=== PATIENT | female | born 1960 | race Caucasian/White ===

== ENCOUNTER 2017-08-01 09:37 | Outpatient (CLI) | payer MEDICARE | END 2017-08-01 09:38 | disposition home or self-care (01) | LOC: LABBT 09:37 | PROVIDERS: ATTEND Neurological Surgery | DX: Z01.812 Encounter for preprocedural laboratory examination (principal); M48.061 Spinal stenosis, lumbar region without neurogenic claudication; M54.16 Radiculopathy, lumbar region ==

== ENCOUNTER 2021-07-08 21:43 | Inpatient (IN) | payer MEDICARE ==
[2021-07-08 23:10] VITALS: BMI 27.8
[2021-07-09] MEDS ORDERED: Ondansetron PF 4 MG/2 ML Vial IVP PRN (01:16)
[2021-07-09] MEDS ORDERED: Ondansetron ODT 4 MG TAB PO PRN (01:16)
[2021-07-09] MEDS ORDERED: Acetaminophen 650 MG Suppository PR PRN (01:16)
[2021-07-09] MEDS ORDERED: Sodium Chloride 0.9% 500 ML IV SCH (01:30)
[2021-07-09] MEDS: Acetaminophen 325 MG TAB PO PRN ×3 (01:47→11:10)
[2021-07-09] MEDS: Sodium Chloride 0.9% 1,000 ML IV SCH ×3 (01:47→23:02)
[2021-07-09 05:41] LABS: #Eosinphils 0.1 thou/uL (0.0-0.7); #Lymphocytes 1.6 thou/uL (1.20-3.40); #Monocytes 1.2 thou/uL (0.11-0.59); #Neutrophils 13.5 thou/uL (1.40-6.50); %Eosinophils 0.4 % (0.0-10.0); %Lymphocytes 9.6 % (21.0-51.0); %Monocytes 7.2 % (0.0-10.0); %Neutrophils 82.8 % (42.0-75.0); Hemoglobin 10.3 g/dL (12.0-16.0); Mean Corpuscular HGB CONC 32.6 g/dL (32.0-36.0); Mean Corpuscular Hemoglobin 29.7 pg (27.0-31.0); Mean Corpuscular Volume 90.9 fL (78.0-98.0); Mean Platelet Volume 9.5 fL (7.4-10.4); Platelet Count 222 thou/uL (130-400); RBC Distribution Width 13.8 % (11.5-14.5); Red Blood Cell (RBC) Count 3.47 mill/uL (4.20-5.40); White Blood Cell (WBC) Count 16.3 thou/uL (4.8-10.8)
[2021-07-09 06:07] LABS: Anion Gap 13 mmol/L (10-20); BUN (Urea Nitrogen) 30 mg/dL (9.8-20.1); Calc. Creatinine Clearance 80 mL/min (70-130); Calcium 8.4 mg/dL (7.8-10.44); Carbon Dioxide 19 mmol/L (22-29); Chloride 108 mmol/L (98-107); Glucose 103 mg/dL (70-105); Potassium 3.7 mmol/L (3.5-5.1); Sodium 136 mmol/L (136-145)
[2021-07-09] MEDS ORDERED: VANCOMYCIN 1.25 GM/250 ML BAG 1.25 GM in Premix Bag 1 BAG IVPB SCH (08:00)
[2021-07-09] MEDS: Cefepime 2 GM in Sodium Chloride 0.9% 100 ML IVPB SCH ×2 (09:07→21:41)
[2021-07-09 11:58] LABS: SARS-CoV-2 PCR by NAA Not Detected (NotDetected)
[2021-07-09] MEDS: HYDROcodone/Acetaminophen 5/325 mg Tablet PO PRN ×3 (13:02→21:41)
[2021-07-09] MEDS ORDERED: tiZANidine HCl 4 MG TAB PO PRN (15:55)
[2021-07-09] MEDS ORDERED: Morphine 4 MG/ML VIAL SLOW IVP PRN (16:06)
[2021-07-09] MEDS ORDERED: hydrALAZINE 20 MG/ML VIAL SLOW IVP PRN (16:32)
[2021-07-09 16:48] LABS: Bacteria/HPF None Seen HPF (None Seen); Bilirubin Negative (Negative); Blood, Urine Negative (Negative); Clarity Clear (Clear); Glucose, Urine (Dipstick) 50 mg/dL (Negative); Ketone, Urine Negative (Negative); Leukocyte 75 Leu/uL (Negative); Nitrite Negative (Negative); Protein, Urine (Dipstick) 20 mg/dL (Neg-Trace); RBC/HPF 0-3 HPF (0-3); Specific Gravity, Urine 1.014 (1.002-1.036); Squamous Epithelial None Seen HPF (0-3); Urobilinogen Normal mg/dL (Less than 2)
[2021-07-09 16:49] LABS: Urine Culture Reflex Yes Yes
[2021-07-09] MEDS: Ketorolac Tromethamine 30 MG/ML VIAL IVP SCH (17:51)
[2021-07-09] MEDS: Vancomycin HCl 1.25 GM in Sodium Chloride 0.9% 250 ML 250 ML IVPB SCH (22:30)
[2021-07-10] MEDS: Ketorolac Tromethamine 30 MG/ML VIAL IVP SCH ×5 (00:25→23:20)
[2021-07-10] MEDS: HYDROcodone/Acetaminophen 5/325 mg Tablet PO PRN ×4 (04:09→20:54)
[2021-07-10] MEDS ORDERED: Iothalamate Meglumine 60% 50 ML VIAL FS ONE (08:24)
[2021-07-10] MEDS ORDERED: Fentanyl 100 MCG/2 ML VIAL ONE (08:34)
[2021-07-10] MEDS ORDERED: Dexamethasone 20 MG/5 ML VIAL ONE (08:47)
[2021-07-10] MEDS ORDERED: PROPOFOL 200 MG/20 ML VIAL ONE (08:47)
[2021-07-10] MEDS ORDERED: Ondansetron PF 4 MG/2 ML Vial ONE (08:47)
[2021-07-10] MEDS ORDERED: Lidocaine 1% PF 5 ML VIAL ONE (08:47)
[2021-07-10] MEDS: Cefepime 2 GM in Sodium Chloride 0.9% 100 ML IVPB SCH ×2 (10:25→20:54)
[2021-07-10] MEDS ORDERED: Tamsulosin HCl 0.4 MG CAP PO SCH (10:30)
[2021-07-10] MEDS: Sodium Chloride 0.9% 1,000 ML IV SCH ×2 (10:41→18:14)
[2021-07-10 11:59] LABS: Hemoglobin 11.3 g/dL (12.0-16.0); Mean Corpuscular HGB CONC 33.2 g/dL (32.0-36.0); Mean Corpuscular Hemoglobin 30.1 pg (27.0-31.0); Mean Corpuscular Volume 90.7 fL (78.0-98.0); Mean Platelet Volume 8.8 fL (7.4-10.4); Platelet Count 348 thou/uL (130-400); RBC Distribution Width 13.4 % (11.5-14.5); Red Blood Cell (RBC) Count 3.74 mill/uL (4.20-5.40); White Blood Cell (WBC) Count 28.2 thou/uL (4.8-10.8)
[2021-07-10 12:19] LABS: Band 6 % (5-11); Lymphocytes 2 % (21-51); MDiff Complete? YES; Monocytes 6 % (0-10); Neutrophil 85 % (42-75); Platelet Morphology Comment Appears Adequate; Polychromasia SLIGHT = 2-3 cells (100X) (0-2/hpf); Reactive Lymphocytes 1 % (0-10)
[2021-07-10 15:10] LABS: Anion Gap 14 mmol/L (10-20); BUN (Urea Nitrogen) 24 mg/dL (9.8-20.1); Calc. Creatinine Clearance 68 mL/min (70-130); Calcium 8.2 mg/dL (7.8-10.44); Carbon Dioxide 16 mmol/L (22-29); Chloride 109 mmol/L (98-107); Glucose 263 mg/dL (70-105); Potassium 4.3 mmol/L (3.5-5.1); Sodium 135 mmol/L (136-145)
[2021-07-10] MEDS: Oxybutynin 5 MG TAB PO SCH ×2 (15:37→20:54)
[2021-07-10 21:18] LABS: Vancomycin, Trough 11.7 ug/mL
[2021-07-10] MEDS: Vancomycin HCl 1.25 GM in Sodium Chloride 0.9% 250 ML 250 ML IVPB SCH (23:21)
[2021-07-11] MEDS: HYDROcodone/Acetaminophen 5/325 mg Tablet PO PRN ×3 (03:08→19:46)
[2021-07-11] MEDS: Sodium Chloride 0.9% 1,000 ML IV SCH ×2 (03:09→16:52)
[2021-07-11] MEDS: Ketorolac Tromethamine 30 MG/ML VIAL IVP SCH ×4 (05:44→23:36)
[2021-07-11] MEDS: Oxybutynin 5 MG TAB PO SCH ×3 (05:44→22:23)
[2021-07-11 06:04] LABS: #Eosinphils 0.1 thou/uL (0.0-0.7); #Lymphocytes 1.6 thou/uL (1.20-3.40); #Monocytes 1.2 thou/uL (0.11-0.59); #Neutrophils 15.6 thou/uL (1.40-6.50); %Basophils 0.1 % (0.0-1.0); %Eosinophils 0.5 % (0.0-10.0); %Lymphocytes 8.7 % (21.0-51.0); %Monocytes 6.6 % (0.0-10.0); %Neutrophils 84.1 % (42.0-75.0); Hemoglobin 10.5 g/dL (12.0-16.0); Mean Corpuscular HGB CONC 32.7 g/dL (32.0-36.0); Mean Corpuscular Hemoglobin 30.3 pg (27.0-31.0); Mean Corpuscular Volume 92.5 fL (78.0-98.0); Platelet Count 322 thou/uL (130-400); RBC Distribution Width 13.4 % (11.5-14.5); Red Blood Cell (RBC) Count 3.45 mill/uL (4.20-5.40); White Blood Cell (WBC) Count 18.5 thou/uL (4.8-10.8)
[2021-07-11 06:32] LABS: Anion Gap 12 mmol/L (10-20); BUN (Urea Nitrogen) 39 mg/dL (9.8-20.1); Calc. Creatinine Clearance 78 mL/min (70-130); Calcium 8.8 mg/dL (7.8-10.44); Carbon Dioxide 20 mmol/L (22-29); Chloride 107 mmol/L (98-107); Glucose 111 mg/dL (70-105); Potassium 4.5 mmol/L (3.5-5.1); Sodium 134 mmol/L (136-145)
[2021-07-11] MEDS: Tamsulosin HCl 0.4 MG CAP PO SCH (08:25)
[2021-07-11] MEDS ORDERED: FLU VACC QS2021-22(6MOS UP)/PF 60 MCG/0.5 ML SYRINGE IM ONE (09:00)
[2021-07-11] MEDS: Cefepime 2 GM in Sodium Chloride 0.9% 100 ML IVPB SCH ×2 (11:21→19:51)
[2021-07-11] MEDS ORDERED: Mag-Al 1200 mg/1200 mg/30 ML UDCUP PO PRN (11:22)
[2021-07-11] MEDS ORDERED: Non-Formulary Item 1 EACH (Gabapentin [Gabapentin] 800 MG Tablet) PO SCH (15:00)
[2021-07-11] MEDS ORDERED: busPIRone HCl 5 MG TAB PO SCH (21:00)
[2021-07-11] MEDS ORDERED: Mometasone 100 MCG/Formoterol 5 MCG 120 PUFF INHALER INH PRN (21:00)
[2021-07-11] MEDS ORDERED: Melatonin 3 MG TAB PO PRN (21:00)
[2021-07-11] MEDS: Vancomycin HCl 1.25 GM in Sodium Chloride 0.9% 250 ML 250 ML IVPB SCH (22:23)
[2021-07-12] MEDS: HYDROcodone/Acetaminophen 5/325 mg Tablet PO PRN (03:02)
[2021-07-12] MEDS: Sodium Chloride 0.9% 1,000 ML IV SCH ×2 (03:03→11:39)
[2021-07-12] MEDS: Oxybutynin 5 MG TAB PO SCH (05:49)
[2021-07-12] MEDS: Ketorolac Tromethamine 30 MG/ML VIAL IVP SCH ×2 (05:50→11:35)
[2021-07-12 06:40] LABS: #Basophils 0.1 thou/uL (0.0-0.2); #Eosinphils 0.2 thou/uL (0.0-0.7); #Lymphocytes 1.6 thou/uL (1.20-3.40); #Monocytes 1.1 thou/uL (0.11-0.59); %Basophils 0.4 % (0.0-1.0); %Eosinophils 1.5 % (0.0-10.0); %Lymphocytes 11.3 % (21.0-51.0); %Monocytes 8.1 % (0.0-10.0); %Neutrophils 78.7 % (42.0-75.0); Mean Corpuscular HGB CONC 32.9 g/dL (32.0-36.0); Mean Corpuscular Hemoglobin 30.3 pg (27.0-31.0); Mean Corpuscular Volume 92.1 fL (78.0-98.0); Mean Platelet Volume 8.5 fL (7.4-10.4); Platelet Count 379 thou/uL (130-400); RBC Distribution Width 13.4 % (11.5-14.5); Red Blood Cell (RBC) Count 3.31 mill/uL (4.20-5.40)
[2021-07-12 07:03] LABS: Anion Gap 11 mmol/L (10-20); BUN (Urea Nitrogen) 30 mg/dL (9.8-20.1); Calc. Creatinine Clearance 84 mL/min (70-130); Calcium 8.6 mg/dL (7.8-10.44); Carbon Dioxide 21 mmol/L (22-29); Chloride 110 mmol/L (98-107); Glucose 120 mg/dL (70-105); Potassium 4.5 mmol/L (3.5-5.1); Sodium 137 mmol/L (136-145)
[2021-07-12] MEDS: Cefepime 2 GM in Sodium Chloride 0.9% 100 ML IVPB SCH (08:26)
[2021-07-12] MEDS: Tamsulosin HCl 0.4 MG CAP PO SCH (08:26)
[2021-07-12] MEDS ORDERED: Bupropion 150 MG XL TAB PO SCH (09:00)
[2021-07-12] MEDS ORDERED: Venlafaxine HCl XR 75 MG CAP PO SCH (09:00)
[2021-07-12 11:54] VITALS: BP 132/79; TEMP 97.4
[2021-07-15 18:14] LABS: CA Oxalate Dihydrate 40 % (.); CA Oxalate Monohydrate 55 % (.); Color Tan (.); Stone Weight 114 mg (.)
== END 2021-07-12 14:42 | disposition home health service (06) | DRG 853 ==
LOC: SJJU 22:58 → OBSVTOIN 23:42
PROVIDERS: ADMIT Student in an Organized Health Care Education/Training Program; ATTEND Internal Medicine
PROC: 0TC78ZZ Extirpation of Matter from Left Ureter, Via Natural or Artificial Opening Endoscopic (ICD-10-PCS; principal; 2021-07-10)
PROC: 0T778DZ Dilation of Left Ureter with Intraluminal Device, Via Natural or Artificial Opening Endoscopic (ICD-10-PCS; 2021-07-10)
DX: A41.9 Sepsis, unspecified organism (principal); G95.19 Other vascular myelopathies; N13.6 Pyonephrosis; Z20.822 Contact with and (suspected) exposure to COVID-19; G51.0 Bell's palsy; I10 Essential (primary) hypertension; G89.29 Other chronic pain; F17.210 Nicotine dependence, cigarettes, uncomplicated; S39.012A Strain of muscle, fascia and tendon of lower back, initial encounter; X58.XXXA Exposure to other specified factors, initial encounter; M48.061 Spinal stenosis, lumbar region without neurogenic claudication; Z86.73 Personal history of transient ischemic attack (TIA), and cerebral infarction without residual deficits; Z88.0 Allergy status to penicillin; Z88.8 Allergy status to other drugs, medicaments and biological substances; Z91.048 Other nonmedicinal substance allergy status; Z79.51 Long term (current) use of inhaled steroids; Z79.899 Other long term (current) drug therapy
CPT/HCPCS: 36415; 72148; 74176; 74420; 80048; 80053; 80202; 81001; 81003; 81015; 82365; 83605; 85025; 85652; 86140; 87040; 87077; 87086; 87149; 87186; 88300; 94760; 96365; 96367; 96375; 96376; C2617; J0692; J0696; J1100; J1885; J2270; J2405; J2704; J3010; J3370; J3490; J7030; J7050; Q9961-U8; U0003; U0005

== ENCOUNTER 2021-07-13 11:16 | Observation (INO) | payer MEDICARE ==
[2021-07-13] MEDS ORDERED: Morphine 4 MG/ML VIAL ONE ×2 (12:13→15:43)
[2021-07-13] MEDS ORDERED: Ondansetron PF 4 MG/2 ML Vial ONE (12:13)
[2021-07-13 13:10] LABS: #Basophils 0.1 thou/uL (0.0-0.2); #Eosinphils 0.1 thou/uL (0.0-0.7); #Lymphocytes 1.6 thou/uL (1.20-3.40); #Monocytes 1.2 thou/uL (0.11-0.59); %Basophils 0.4 % (0.0-1.0); %Eosinophils 0.6 % (0.0-10.0); %Lymphocytes 11.5 % (21.0-51.0); %Monocytes 8.3 % (0.0-10.0); %Neutrophils 79.2 % (42.0-75.0); Hemoglobin 9.2 g/dL (12.0-16.0); Mean Corpuscular HGB CONC 33.6 g/dL (32.0-36.0); Mean Corpuscular Hemoglobin 30.4 pg (27.0-31.0); Mean Corpuscular Volume 90.4 fL (78.0-98.0); Platelet Count 468 thou/uL (130-400); RBC Distribution Width 13.2 % (11.5-14.5); Red Blood Cell (RBC) Count 3.04 mill/uL (4.20-5.40); White Blood Cell (WBC) Count 13.9 thou/uL (4.8-10.8)
[2021-07-13 13:33] LABS: ALT (SGPT) 20 U/L (8-55); AST (SGOT) 19 U/L (5-34); Albumin 2.7 g/dL (3.5-5.0); Alkaline Phosphatase 67 U/L (40-110); Anion Gap 11 mmol/L (10-20); BUN (Urea Nitrogen) 18 mg/dL (9.8-20.1); Bilirubin, Total 0.7 mg/dL (0.2-1.2); Calc. Creatinine Clearance 0 mL/min (70-130); Calcium 8.9 mg/dL (7.8-10.44); Carbon Dioxide 22 mmol/L (22-29); Chloride 105 mmol/L (98-107); Globulin 3.5 g/dL (2.4-3.5); Glucose 112 mg/dL (70-105); Potassium 4.1 mmol/L (3.5-5.1); Protein, Total 6.2 g/dL (6.0-8.3); Sodium 134 mmol/L (136-145)
[2021-07-13 16:04] LABS: Bilirubin Negative (Negative); Blood, Urine 3+ (Negative); Clarity Clear (Clear); Glucose, Urine (Dipstick) 70 mg/dL (Negative); Ketone, Urine Negative (Negative); Leukocyte 25 Leu/uL (Negative); Nitrite Negative (Negative); Protein, Urine (Dipstick) 30 mg/dL (Neg-Trace); Specific Gravity, Urine 1.012 (1.002-1.036); Urobilinogen Normal mg/dL (Less than 2)
[2021-07-13 16:05] LABS: Bacteria/HPF 1+ HPF (None Seen); Squamous Epithelial 0-3 HPF (0-3)
[2021-07-13 19:00] LABS: Magnesium 1.8 mg/dL (1.6-2.6); Phosphorus 2.5 mg/dL (2.3-4.7)
[2021-07-13] MEDS ORDERED: HYDROcodone/Acetaminophen 10/325 mg Tablet PO PRN (19:04)
[2021-07-13] MEDS ORDERED: Acetaminophen 325 MG TAB PO PRN (19:04)
[2021-07-13] MEDS ORDERED: Bisacodyl 5 MG TAB PO PRN (19:04)
[2021-07-13] MEDS ORDERED: Ondansetron PF 4 MG/2 ML Vial IVP PRN (19:04)
[2021-07-13] MEDS ORDERED: Senokot S 8.6-50 MG TAB PO PRN (19:04)
[2021-07-13] MEDS ORDERED: Mometasone 100 MCG/Formoterol 5 MCG 120 PUFF INHALER INH PRN (19:23)
[2021-07-13] MEDS ORDERED: Morphine 4 MG/ML VIAL SLOW IVP PRN (20:09)
[2021-07-13] MEDS ORDERED: Albuterol Sulfate 2.5 mg/3 ml Neb NEB PRN (20:10)
[2021-07-13] MEDS: Morphine 4 MG/ML VIAL SLOW IVP PRN (20:46)
[2021-07-13] MEDS: Sodium Chloride 0.9% 1,000 ML IV SCH (20:47)
[2021-07-13 21:05] VITALS: BMI 29.6
[2021-07-13] MEDS: tiZANidine HCl 4 MG TAB PO SCH (22:21)
[2021-07-13] MEDS: risperiDONE 3 MG TAB PO SCH (22:21)
[2021-07-13] MEDS: Ciprofloxacin 500 MG TAB PO SCH (22:21)
[2021-07-13] MEDS: Melatonin 3 MG TAB PO SCH (22:21)
[2021-07-13] MEDS: Simvastatin 10 MG TAB PO SCH (22:22)
[2021-07-13] MEDS: Famotidine/PF 20 mg/2ml Vial SLOW IVP SCH (22:23)
[2021-07-14] MEDS: Morphine 4 MG/ML VIAL SLOW IVP PRN ×3 (00:28→10:25)
[2021-07-14] MEDS ORDERED: hydrALAZINE 20 MG/ML VIAL SLOW IVP PRN (01:03)
[2021-07-14] MEDS: tiZANidine HCl 4 MG TAB PO SCH ×3 (05:23→21:13)
[2021-07-14 06:00] LABS: #Eosinphils 0.2 thou/uL (0.0-0.7); #Lymphocytes 1.2 thou/uL (1.20-3.40); #Monocytes 0.9 thou/uL (0.11-0.59); #Neutrophils 7.2 thou/uL (1.40-6.50); %Basophils 0.5 % (0.0-1.0); %Eosinophils 1.8 % (0.0-10.0); %Lymphocytes 12.7 % (21.0-51.0); %Monocytes 9.3 % (0.0-10.0); %Neutrophils 75.8 % (42.0-75.0); Hemoglobin 8.5 g/dL (12.0-16.0); Mean Corpuscular HGB CONC 31.3 g/dL (32.0-36.0); Mean Corpuscular Hemoglobin 28.9 pg (27.0-31.0); Mean Corpuscular Volume 92.3 fL (78.0-98.0); Mean Platelet Volume 7.6 fL (7.4-10.4); Platelet Count 443 thou/uL (130-400); RBC Distribution Width 13.2 % (11.5-14.5); Red Blood Cell (RBC) Count 2.96 mill/uL (4.20-5.40); White Blood Cell (WBC) Count 9.5 thou/uL (4.8-10.8)
[2021-07-14 06:25] LABS: Anion Gap 11 mmol/L (10-20); BUN (Urea Nitrogen) 20 mg/dL (9.8-20.1); Calc. Creatinine Clearance 86 mL/min (70-130); Carbon Dioxide 22 mmol/L (22-29); Chloride 104 mmol/L (98-107); Glucose 119 mg/dL (70-105); Potassium 4.8 mmol/L (3.5-5.1); Sodium 132 mmol/L (136-145)
[2021-07-14] MEDS: Aspirin 325 mg Enteric Coated Tablet PO SCH (07:58)
[2021-07-14] MEDS: Venlafaxine HCl XR 75 MG CAP PO SCH (07:58)
[2021-07-14] MEDS: Ciprofloxacin 500 MG TAB PO SCH ×2 (07:59→21:02)
[2021-07-14] MEDS: Famotidine/PF 20 mg/2ml Vial SLOW IVP SCH ×2 (07:59→21:02)
[2021-07-14] MEDS: Bupropion 150 MG XL TAB PO SCH (10:26)
[2021-07-14] MEDS: Sodium Chloride 0.9% 1,000 ML IV SCH (14:18)
[2021-07-14] MEDS: Simvastatin 10 MG TAB PO SCH (21:02)
[2021-07-14] MEDS: Melatonin 3 MG TAB PO SCH (21:03)
[2021-07-14] MEDS: risperiDONE 3 MG TAB PO SCH (21:03)
[2021-07-15] MEDS: Morphine 4 MG/ML VIAL SLOW IVP PRN ×2 (03:12→08:55)
[2021-07-15] MEDS: tiZANidine HCl 4 MG TAB PO SCH (06:18)
[2021-07-15] MEDS: Aspirin 325 mg Enteric Coated Tablet PO SCH (08:47)
[2021-07-15] MEDS: Ciprofloxacin 500 MG TAB PO SCH (08:47)
[2021-07-15] MEDS: Venlafaxine HCl XR 75 MG CAP PO SCH (08:47)
[2021-07-15] MEDS: Sodium Chloride 0.9% 1,000 ML IV SCH ×2 (08:48→12:39)
[2021-07-15] MEDS: Famotidine/PF 20 mg/2ml Vial SLOW IVP SCH (08:48)
[2021-07-15 09:04] VITALS: BP 95/63; TEMP 98.4
[2021-07-15] MEDS: Bupropion 150 MG XL TAB PO SCH (12:39)
== END 2021-07-15 13:48 | disposition home or self-care (01) ==
LOC: ERS 11:16 → INTOOBSV 18:03 → T4-A 18:03
PROVIDERS: ADMIT Internal Medicine; ATTEND Internal Medicine
DX: S39.012A Strain of muscle, fascia and tendon of lower back, initial encounter (principal); G89.29 Other chronic pain; I10 Essential (primary) hypertension; E87.1 Hypo-osmolality and hyponatremia; G51.0 Bell's palsy; E88.09 Other disorders of plasma-protein metabolism, not elsewhere classified; N30.00 Acute cystitis without hematuria; Z79.82 Long term (current) use of aspirin; Z79.890 Hormone replacement therapy; Z79.899 Other long term (current) drug therapy; Z86.73 Personal history of transient ischemic attack (TIA), and cerebral infarction without residual deficits; Z87.440 Personal history of urinary (tract) infections; Z88.0 Allergy status to penicillin; Z88.8 Allergy status to other drugs, medicaments and biological substances; Z90.49 Acquired absence of other specified parts of digestive tract; Z90.710 Acquired absence of both cervix and uterus; Z98.51 Tubal ligation status; Z98.890 Other specified postprocedural states; Z87.891 Personal history of nicotine dependence; Z91.09 Other allergy status, other than to drugs and biological substances; X58.XXXA Exposure to other specified factors, initial encounter
CPT/HCPCS: 80048; 80053; 82607; 82746; 83605; 83735; 84100; 85025 ×2; 87040; 87086; 96374; 96375 ×2; 96376 ×4; 97116; 97139; 97530; 97535; 99284; G0378 ×4; 36415; 81003; 81015; J2270; J2405; J7050; S0028

== ENCOUNTER 2021-07-21 16:08 | Emergency (ER) | payer MEDICARE ==
[2021-07-21] MEDS ORDERED: Fentanyl 100 MCG/2 ML VIAL ONE (17:01)
[2021-07-21] MEDS ORDERED: Ondansetron PF 4 MG/2 ML Vial ONE (17:01)
[2021-07-21 18:14] LABS: #Eosinphils 0.1 thou/uL (0.0-0.7); #Lymphocytes 2.1 thou/uL (1.20-3.40); #Monocytes 1.3 thou/uL (0.11-0.59); #Neutrophils 6.1 thou/uL (1.40-6.50); %Basophils 0.5 % (0.0-1.0); %Lymphocytes 21.5 % (21.0-51.0); %Monocytes 13.4 % (0.0-10.0); %Neutrophils 63.6 % (42.0-75.0); Hemoglobin 8.9 g/dL (12.0-16.0); Mean Corpuscular HGB CONC 32.9 g/dL (32.0-36.0); Mean Corpuscular Hemoglobin 30.3 pg (27.0-31.0); Mean Corpuscular Volume 92.2 fL (78.0-98.0); Mean Platelet Volume 6.2 fL (7.4-10.4); Platelet Count 516 thou/uL (130-400); RBC Distribution Width 12.5 % (11.5-14.5); Red Blood Cell (RBC) Count 2.95 mill/uL (4.20-5.40); White Blood Cell (WBC) Count 9.6 thou/uL (4.8-10.8)
[2021-07-21 18:42] LABS: ALT (SGPT) 19 U/L (8-55); AST (SGOT) 17 U/L (5-34); Albumin 2.8 g/dL (3.5-5.0); Alkaline Phosphatase 72 U/L (40-110); Anion Gap 12 mmol/L (10-20); BUN (Urea Nitrogen) 19 mg/dL (9.8-20.1); Bilirubin, Total 0.3 mg/dL (0.2-1.2); CK (CPK) 23 U/L (29-168); Calc. Creatinine Clearance 0 mL/min (70-130); Calcium 9.5 mg/dL (7.8-10.44); Carbon Dioxide 22 mmol/L (22-29); Chloride 105 mmol/L (98-107); Globulin 4.4 g/dL (2.4-3.5); Glucose 97 mg/dL (70-105); Lipase 152 U/L (8-78); Potassium 4.1 mmol/L (3.5-5.1); Protein, Total 7.2 g/dL (6.0-8.3); Sodium 135 mmol/L (136-145)
[2021-07-21] MEDS ORDERED: Morphine 4 MG/ML VIAL ONE (20:06)
[2021-07-21 20:31] LABS: Bilirubin Negative (Negative); Blood, Urine Negative (Negative); Clarity Clear (Clear); Glucose, Urine (Dipstick) Normal (Negative); Ketone, Urine Negative (Negative); Leukocyte Negative Leu/uL (Negative); Nitrite Negative (Negative); Protein, Urine (Dipstick) Negative (Neg-Trace); Specific Gravity, Urine 1.011 (1.002-1.036); Urobilinogen Normal mg/dL (Less than 2)
== END 2021-07-22 00:44 | disposition home or self-care (01) ==
LOC: ERS 16:08
DX: R10.9 Unspecified abdominal pain (principal); I10 Essential (primary) hypertension; F17.210 Nicotine dependence, cigarettes, uncomplicated; Z86.73 Personal history of transient ischemic attack (TIA), and cerebral infarction without residual deficits; Z86.69 Personal history of other diseases of the nervous system and sense organs
CPT/HCPCS: 36415; 51701; 74176; 80053; 81003; 82550; 83690; 85025; 96374; 96375; J2270; J2405; J3010

== ENCOUNTER 2021-07-25 17:11 | Emergency (ER) | payer MEDICARE ==
[2021-07-25] MEDS ORDERED: Acetaminophen 500 MG TAB ONE (18:58)
[2021-07-25 19:27] LABS: #Eosinphils 0.1 thou/uL (0.0-0.7); #Lymphocytes 1.3 thou/uL (1.20-3.40); %Basophils 0.1 % (0.0-1.0); %Eosinophils 0.5 % (0.0-10.0); %Lymphocytes 11.6 % (21.0-51.0); %Monocytes 9.1 % (0.0-10.0); %Neutrophils 78.7 % (42.0-75.0); Hemoglobin 9.3 g/dL (12.0-16.0); Mean Corpuscular HGB CONC 33.7 g/dL (32.0-36.0); Mean Corpuscular Hemoglobin 30.3 pg (27.0-31.0); Mean Corpuscular Volume 89.8 fL (78.0-98.0); Mean Platelet Volume 6.1 fL (7.4-10.4); Platelet Count 561 thou/uL (130-400); RBC Distribution Width 12.5 % (11.5-14.5); Red Blood Cell (RBC) Count 3.06 mill/uL (4.20-5.40); White Blood Cell (WBC) Count 11.4 thou/uL (4.8-10.8)
[2021-07-25 19:48] LABS: ALT (SGPT) 24 U/L (8-55); AST (SGOT) 25 U/L (5-34); Albumin 3.1 g/dL (3.5-5.0); Alkaline Phosphatase 78 U/L (40-110); Anion Gap 12 mmol/L (10-20); BUN (Urea Nitrogen) 16 mg/dL (9.8-20.1); Bilirubin, Total 0.4 mg/dL (0.2-1.2); Calc. Creatinine Clearance 0 mL/min (70-130); Calcium 10.6 mg/dL (7.8-10.44); Carbon Dioxide 24 mmol/L (22-29); Chloride 100 mmol/L (98-107); Globulin 4.9 g/dL (2.4-3.5); Glucose 105 mg/dL (70-105); Potassium 4.2 mmol/L (3.5-5.1); Sodium 132 mmol/L (136-145)
[2021-07-25 21:01] LABS: Bilirubin Negative (Negative); Blood, Urine Negative (Negative); Glucose, Urine (Dipstick) Normal (Negative); Ketone, Urine Negative (Negative); Leukocyte Negative Leu/uL (Negative); Nitrite Negative (Negative); Protein, Urine (Dipstick) 10 mg/dL (Neg-Trace); Specific Gravity, Urine 1.011 (1.002-1.036); Urobilinogen Normal mg/dL (Less than 2)
[2021-07-25 21:04] LABS: Clarity Hazy (Clear)
== END 2021-07-26 02:00 | disposition home or self-care (01) ==
LOC: ERS 17:11
DX: M54.50 Low back pain, unspecified (principal); I10 Essential (primary) hypertension; F17.200 Nicotine dependence, unspecified, uncomplicated; Z86.73 Personal history of transient ischemic attack (TIA), and cerebral infarction without residual deficits
CPT/HCPCS: 36415; 51701; 80053; 81003; 85025; 87086

== ENCOUNTER 2021-07-27 13:56 | Observation (INO) | payer MEDICARE ==
[2021-07-27 15:15] LABS: #Eosinphils 0.1 thou/uL (0.0-0.7); #Lymphocytes 1.4 thou/uL (1.20-3.40); #Neutrophils 9.1 thou/uL (1.40-6.50); %Basophils 0.3 % (0.0-1.0); %Eosinophils 0.7 % (0.0-10.0); %Lymphocytes 11.9 % (21.0-51.0); %Monocytes 8.5 % (0.0-10.0); %Neutrophils 78.6 % (42.0-75.0); Hemoglobin 9.5 g/dL (12.0-16.0); Mean Corpuscular HGB CONC 33.6 g/dL (32.0-36.0); Mean Corpuscular Hemoglobin 30.2 pg (27.0-31.0); Mean Corpuscular Volume 89.9 fL (78.0-98.0); Mean Platelet Volume 5.9 fL (7.4-10.4); Platelet Count 608 thou/uL (130-400); RBC Distribution Width 12.4 % (11.5-14.5); Red Blood Cell (RBC) Count 3.14 mill/uL (4.20-5.40); White Blood Cell (WBC) Count 11.6 thou/uL (4.8-10.8)
[2021-07-27 15:35] LABS: ALT (SGPT) 22 U/L (8-55); AST (SGOT) 21 U/L (5-34); Albumin 3.1 g/dL (3.5-5.0); Alkaline Phosphatase 75 U/L (40-110); Anion Gap 13 mmol/L (10-20); BUN (Urea Nitrogen) 18 mg/dL (9.8-20.1); Bilirubin, Total 0.3 mg/dL (0.2-1.2); Calc. Creatinine Clearance 0 mL/min (70-130); Calcium 10.2 mg/dL (7.8-10.44); Carbon Dioxide 25 mmol/L (22-29); Chloride 103 mmol/L (98-107); Globulin 4.9 g/dL (2.4-3.5); Glucose 89 mg/dL (70-105); Sodium 137 mmol/L (136-145)
[2021-07-27 16:26] LABS: Bilirubin Negative (Negative); Blood, Urine Negative (Negative); Clarity Turbid (Clear); Glucose, Urine (Dipstick) Normal (Negative); Ketone, Urine Negative (Negative); Leukocyte Negative Leu/uL (Negative); Nitrite Negative (Negative); Protein, Urine (Dipstick) 10 mg/dL (Neg-Trace); Specific Gravity, Urine 1.013 (1.002-1.036); Urobilinogen Normal mg/dL (Less than 2)
[2021-07-27] MEDS ORDERED: Cyclobenzaprine 10 MG TAB ONE (16:44)
[2021-07-27] MEDS ORDERED: Acetaminophen 500 MG TAB ONE (17:21)
[2021-07-27] MEDS ORDERED: Vancomycin 1 GM/200 ML BAG ONE (18:33)
[2021-07-27] MEDS ORDERED: Mometasone 100 MCG/Formoterol 5 MCG 120 PUFF INHALER INH PRN (19:37)
[2021-07-27] MEDS ORDERED: Ondansetron ODT 4 MG TAB PO PRN (19:38)
[2021-07-27] MEDS ORDERED: Sodium Chloride 0.9% 1,000 ML IV SCH (19:45)
[2021-07-27] MEDS ORDERED: Electrolyte Replacement Protocol 1 EACH FS SCH (20:00)
[2021-07-27] MEDS ORDERED: Albuterol Sulfate 2.5 mg/3 ml Neb NEB PRN (20:14)
[2021-07-27 20:33] VITALS: BMI 29.2
[2021-07-27] MEDS: Enoxaparin Sodium 40 MG/0.4 ML SYRINGE SC SCH ×2 (21:30→21:34)
[2021-07-27] MEDS: Melatonin 3 MG TAB PO SCH (21:35)
[2021-07-27] MEDS: Nicotine 14 MG PATCH TD SCH (21:35)
[2021-07-27] MEDS: Cyclobenzaprine 10 MG TAB PO PRN (21:38)
[2021-07-27] MEDS: Acetaminophen 325 MG TAB PO PRN (21:48)
[2021-07-27] MEDS: Simvastatin 10 MG TAB PO SCH (21:52)
[2021-07-27 22:15] LABS: Magnesium 1.6 mg/dL (1.6-2.6)
[2021-07-27] MEDS ORDERED: Magnesium 2 GM/50 ML 2 GM in Premix Bag 1 BAG IVPB SCH (22:45)
[2021-07-28] MEDS: Acetaminophen 325 MG TAB PO PRN ×3 (02:50→20:07)
[2021-07-28 07:47] LABS: Hemoglobin 8.8 g/dL (12.0-16.0); Mean Corpuscular HGB CONC 33.5 g/dL (32.0-36.0); Mean Corpuscular Hemoglobin 30.6 pg (27.0-31.0); Mean Corpuscular Volume 91.3 fL (78.0-98.0); Mean Platelet Volume 6.5 fL (7.4-10.4); Platelet Count 460 thou/uL (130-400); RBC Distribution Width 12.4 % (11.5-14.5); Red Blood Cell (RBC) Count 2.88 mill/uL (4.20-5.40); White Blood Cell (WBC) Count 9.2 thou/uL (4.8-10.8)
[2021-07-28] MEDS: Cyclobenzaprine 10 MG TAB PO PRN ×3 (07:49→21:31)
[2021-07-28] MEDS: Enoxaparin Sodium 40 MG/0.4 ML SYRINGE SC SCH (07:49)
[2021-07-28 08:12] LABS: Anion Gap 11 mmol/L (10-20); BUN (Urea Nitrogen) 16 mg/dL (9.8-20.1); Calc. Creatinine Clearance 93 mL/min (70-130); Calcium 9.5 mg/dL (7.8-10.44); Carbon Dioxide 23 mmol/L (22-29); Chloride 106 mmol/L (98-107); Glucose 96 mg/dL (70-105); Sodium 136 mmol/L (136-145)
[2021-07-28 09:16] LABS: Band 1 % (5-11); Eosinophils 1 % (0-10); Lymphocytes 19 % (21-51); MDiff Complete? YES; Metamyelocyte 1 % (0-0); Monocytes 7 % (0-10); Myelocyte 1 % (0-0); Neutrophil 70 % (42-75); Platelet Morphology Comment Appears Increased; Polychromasia SLIGHT = 2-3 cells (100X) (0-2/hpf); Small Platelets SLIGHT
[2021-07-28] MEDS ORDERED: Vancomycin HCl 1.5 GM in Sodium Chloride 0.9% 250 ML 300 ML IVPB SCH (11:00)
[2021-07-28] MEDS: Morphine 4 MG/ML VIAL SLOW IVP PRN ×3 (12:47→21:31)
[2021-07-28 13:36] LABS: SARS-CoV-2 PCR by NAA Not Detected (NotDetected)
[2021-07-28] MEDS ORDERED: Vancomycin 1 GM in Premix Bag 1 BAG IVPB SCH (20:00)
[2021-07-28] MEDS: Simvastatin 10 MG TAB PO SCH (20:08)
[2021-07-28] MEDS: Melatonin 3 MG TAB PO SCH (20:08)
[2021-07-28] MEDS: Nicotine 14 MG PATCH TD SCH (20:17)
[2021-07-29] MEDS: Cyclobenzaprine 10 MG TAB PO PRN ×3 (06:27→19:49)
[2021-07-29] MEDS: Acetaminophen 325 MG TAB PO PRN ×2 (06:27→19:49)
[2021-07-29] MEDS: Enoxaparin Sodium 40 MG/0.4 ML SYRINGE SC SCH (07:08)
[2021-07-29 07:23] LABS: #Eosinphils 0.3 thou/uL (0.0-0.7); #Monocytes 0.9 thou/uL (0.11-0.59); #Neutrophils 5.4 thou/uL (1.40-6.50); %Basophils 0.5 % (0.0-1.0); %Eosinophils 3.5 % (0.0-10.0); %Lymphocytes 23.1 % (21.0-51.0); %Monocytes 10.7 % (0.0-10.0); %Neutrophils 62.3 % (42.0-75.0); Hemoglobin 9.1 g/dL (12.0-16.0); Mean Corpuscular Hemoglobin 29.6 pg (27.0-31.0); Mean Corpuscular Volume 89.7 fL (78.0-98.0); Mean Platelet Volume 5.9 fL (7.4-10.4); Platelet Count 509 thou/uL (130-400); RBC Distribution Width 12.3 % (11.5-14.5); Red Blood Cell (RBC) Count 3.08 mill/uL (4.20-5.40); White Blood Cell (WBC) Count 8.7 thou/uL (4.8-10.8)
[2021-07-29 07:41] LABS: Anion Gap 11 mmol/L (10-20); BUN (Urea Nitrogen) 18 mg/dL (9.8-20.1); Calc. Creatinine Clearance 79 mL/min (70-130); Calcium 9.6 mg/dL (7.8-10.44); Carbon Dioxide 24 mmol/L (22-29); Chloride 103 mmol/L (98-107); Glucose 84 mg/dL (70-105); Potassium 4.3 mmol/L (3.5-5.1); Sodium 134 mmol/L (136-145)
[2021-07-29] MEDS ORDERED: Acetaminophen 500 MG TAB PO PRN (10:07)
[2021-07-29] MEDS ORDERED: diphenhydrAMINE 50 MG CAP PO PRN (10:07)
[2021-07-29 10:41] LABS: Vancomycin, Trough 10.9 ug/mL
[2021-07-29] MEDS ORDERED: Bupropion 150 MG XL TAB PO SCH (12:15)
[2021-07-29] MEDS: Vancomycin 1 GM in Premix Bag 1 BAG IVPB SCH ×2 (12:35→23:47)
[2021-07-29] MEDS: Morphine 4 MG/ML VIAL SLOW IVP PRN (14:47)
[2021-07-29] MEDS: Melatonin 3 MG TAB PO SCH (19:46)
[2021-07-29] MEDS: Nicotine 14 MG PATCH TD SCH (19:47)
[2021-07-29] MEDS: risperiDONE 3 MG TAB PO SCH (19:48)
[2021-07-29] MEDS: Simvastatin 10 MG TAB PO SCH (19:49)
[2021-07-29] MEDS ORDERED: Non-Formulary Item 1 EACH (Fluvoxamine Maleate [Fluvoxamine Maleate] 50 MG Tablet) PO SCH (21:00)
[2021-07-30] MEDS: Cyclobenzaprine 10 MG TAB PO PRN ×3 (03:54→20:20)
[2021-07-30] MEDS: Acetaminophen 325 MG TAB PO PRN ×2 (03:54→17:51)
[2021-07-30] MEDS: Aspirin 325 mg Enteric Coated Tablet PO SCH (08:24)
[2021-07-30] MEDS: Topiramate 100 MG TAB PO SCH (08:24)
[2021-07-30] MEDS: Desvenlafaxine Succinate [Pristiq] 50 MG Tab.Er.24h PO SCH (08:25)
[2021-07-30] MEDS ORDERED: Venlafaxine HCl XR 75 MG CAP PO SCH (09:00)
[2021-07-30] MEDS ORDERED: QUERCETIN DIHYDRATE 1 GM PO SCH ×2 (09:00)
[2021-07-30] MEDS ORDERED: Non-Formulary Item 1 EACH (Desvenlafaxine Succinate [Pristiq] 50 MG Tab.Er.24h) PO SCH (09:00)
[2021-07-30] MEDS ORDERED: Non-Formulary Item 1 EACH (Bupropion Hcl [Wellbutrin Xl] 300 MG Tab.Er.24h) PO SCH (09:00)
[2021-07-30] MEDS ORDERED: Topiramate 100 MG TAB PO SCH (09:00)
[2021-07-30] MEDS ORDERED: DESVENLAFAXINE 50 MG PO SCH (09:00)
[2021-07-30] MEDS: Enoxaparin Sodium 40 MG/0.4 ML SYRINGE SC SCH (09:03)
[2021-07-30] MEDS: Bupropion 150 MG XL TAB PO SCH (09:35)
[2021-07-30] MEDS: Senokot S 8.6-50 MG TAB PO PRN ×2 (10:35→20:20)
[2021-07-30] MEDS: Vancomycin 1 GM in Premix Bag 1 BAG IVPB SCH (11:51)
[2021-07-30] MEDS: Morphine 4 MG/ML VIAL SLOW IVP PRN (11:52)
[2021-07-30] MEDS: Polyvinyl Alcohol 1.4%/Povidone 0.6% Opth Drops EA EYE SCH ×2 (15:52→20:15)
[2021-07-30] MEDS: Melatonin 3 MG TAB PO SCH (20:14)
[2021-07-30] MEDS: Nicotine 14 MG PATCH TD SCH (20:14)
[2021-07-30] MEDS: risperiDONE 3 MG TAB PO SCH (20:15)
[2021-07-30] MEDS: Simvastatin 10 MG TAB PO SCH (20:16)
[2021-07-30 23:27] LABS: Vancomycin, Trough 12.7 ug/mL
[2021-07-31] MEDS: Morphine 4 MG/ML VIAL SLOW IVP PRN ×3 (05:13→20:08)
[2021-07-31] MEDS: Topiramate 100 MG TAB PO SCH (08:57)
[2021-07-31] MEDS: Aspirin 325 mg Enteric Coated Tablet PO SCH (08:58)
[2021-07-31] MEDS: Cyclobenzaprine 10 MG TAB PO PRN ×2 (09:00→20:07)
[2021-07-31] MEDS: Senokot S 8.6-50 MG TAB PO PRN (09:01)
[2021-07-31] MEDS: Bupropion 150 MG XL TAB PO SCH (09:04)
[2021-07-31] MEDS: Desvenlafaxine Succinate [Pristiq] 50 MG Tab.Er.24h PO SCH (09:04)
[2021-07-31] MEDS: Polyvinyl Alcohol 1.4%/Povidone 0.6% Opth Drops EA EYE SCH ×4 (09:04→20:15)
[2021-07-31] MEDS: Enoxaparin Sodium 40 MG/0.4 ML SYRINGE SC SCH (09:09)
[2021-07-31] MEDS: Cepastat Lozenges 1 LOZ PO PRN (16:35)
[2021-07-31] MEDS: Nicotine 14 MG PATCH TD SCH (20:06)
[2021-07-31] MEDS: risperiDONE 3 MG TAB PO SCH (20:08)
[2021-07-31] MEDS: Simvastatin 10 MG TAB PO SCH (20:08)
[2021-07-31] MEDS: Melatonin 3 MG TAB PO SCH (20:08)
[2021-08-01] MEDS: Aspirin 325 mg Enteric Coated Tablet PO SCH (09:26)
[2021-08-01] MEDS: Desvenlafaxine Succinate [Pristiq] 50 MG Tab.Er.24h PO SCH (09:26)
[2021-08-01] MEDS: Topiramate 100 MG TAB PO SCH (09:26)
[2021-08-01] MEDS: Enoxaparin Sodium 40 MG/0.4 ML SYRINGE SC SCH (09:27)
[2021-08-01] MEDS: Bupropion 150 MG XL TAB PO SCH (09:28)
[2021-08-01] MEDS: Polyvinyl Alcohol 1.4%/Povidone 0.6% Opth Drops EA EYE SCH ×3 (09:28→19:50)
[2021-08-01] MEDS: Cepastat Lozenges 1 LOZ PO PRN (09:28)
[2021-08-01] MEDS: Acetaminophen 325 MG TAB PO PRN (09:29)
[2021-08-01] MEDS: Cyclobenzaprine 10 MG TAB PO PRN ×2 (09:30→20:01)
[2021-08-01] MEDS: tiZANidine HCl 4 MG TAB PO PRN (13:08)
[2021-08-01] MEDS: Simvastatin 10 MG TAB PO SCH (19:51)
[2021-08-01] MEDS: Nicotine 14 MG PATCH TD SCH (19:51)
[2021-08-01] MEDS: Melatonin 3 MG TAB PO SCH (19:51)
[2021-08-01] MEDS: risperiDONE 3 MG TAB PO SCH (19:51)
[2021-08-02] MEDS: Acetaminophen 325 MG TAB PO PRN (04:28)
[2021-08-02] MEDS: Cyclobenzaprine 10 MG TAB PO PRN ×2 (04:33→16:11)
[2021-08-02] MEDS: Topiramate 100 MG TAB PO SCH (09:32)
[2021-08-02] MEDS: Aspirin 325 mg Enteric Coated Tablet PO SCH (09:32)
[2021-08-02] MEDS: Bupropion 150 MG XL TAB PO SCH (09:33)
[2021-08-02] MEDS: Desvenlafaxine Succinate [Pristiq] 50 MG Tab.Er.24h PO SCH (09:34)
[2021-08-02] MEDS: Enoxaparin Sodium 40 MG/0.4 ML SYRINGE SC SCH (09:34)
[2021-08-02] MEDS: Polyvinyl Alcohol 1.4%/Povidone 0.6% Opth Drops EA EYE SCH ×3 (09:35→21:10)
[2021-08-02] MEDS: Morphine 4 MG/ML VIAL SLOW IVP PRN (16:46)
[2021-08-02] MEDS: tiZANidine HCl 4 MG TAB PO PRN (21:09)
[2021-08-02] MEDS: Melatonin 3 MG TAB PO SCH (21:10)
[2021-08-02] MEDS: HYDROcodone/Acetaminophen 5/325 mg Tablet PO PRN (21:10)
[2021-08-02] MEDS: Simvastatin 10 MG TAB PO SCH (21:12)
[2021-08-02] MEDS: risperiDONE 3 MG TAB PO SCH (21:12)
[2021-08-02] MEDS: Nicotine 14 MG PATCH TD SCH (21:18)
[2021-08-03] MEDS: Enoxaparin Sodium 40 MG/0.4 ML SYRINGE SC SCH (07:16)
[2021-08-03] MEDS: Desvenlafaxine Succinate [Pristiq] 50 MG Tab.Er.24h PO SCH (08:39)
[2021-08-03] MEDS: Polyvinyl Alcohol 1.4%/Povidone 0.6% Opth Drops EA EYE SCH (08:40)
[2021-08-03] MEDS: Topiramate 100 MG TAB PO SCH (08:40)
[2021-08-03] MEDS: Bupropion 150 MG XL TAB PO SCH (08:40)
[2021-08-03] MEDS: Cyclobenzaprine 10 MG TAB PO PRN (08:41)
[2021-08-03] MEDS: Aspirin 325 mg Enteric Coated Tablet PO SCH (08:41)
[2021-08-03] MEDS: HYDROcodone/Acetaminophen 5/325 mg Tablet PO PRN (09:56)
[2021-08-03 10:11] VITALS: BP 101/67; TEMP 97.8
== END 2021-08-03 11:31 | disposition home or self-care (01) ==
LOC: ERS 13:56 → INTOOBSV 18:02 → T4-B 18:02
PROVIDERS: ADMIT Specialist; ATTEND Family Medicine
DX: M48.061 Spinal stenosis, lumbar region without neurogenic claudication (principal); G95.19 Other vascular myelopathies; G89.29 Other chronic pain; G51.0 Bell's palsy; R65.10 Systemic inflammatory response syndrome (SIRS) of non-infectious origin without acute organ dysfunction; J44.9 Chronic obstructive pulmonary disease, unspecified; F31.9 Bipolar disorder, unspecified; F41.9 Anxiety disorder, unspecified; I10 Essential (primary) hypertension; J02.9 Acute pharyngitis, unspecified; H04.123 Dry eye syndrome of bilateral lacrimal glands; F17.210 Nicotine dependence, cigarettes, uncomplicated; Z20.822 Contact with and (suspected) exposure to COVID-19; Z88.0 Allergy status to penicillin; Z88.8 Allergy status to other drugs, medicaments and biological substances; Z91.02 Food additives allergy status; Z79.82 Long term (current) use of aspirin; Z79.890 Hormone replacement therapy; Z79.899 Other long term (current) drug therapy; Z86.73 Personal history of transient ischemic attack (TIA), and cerebral infarction without residual deficits; Z96.0 Presence of urogenital implants; Z87.442 Personal history of urinary calculi; Z98.1 Arthrodesis status; Z74.1 Need for assistance with personal care; Z90.49 Acquired absence of other specified parts of digestive tract; Z98.51 Tubal ligation status
CPT/HCPCS: 71045; 80048 ×2; 80053 ×2; 80202 ×2; 81003 ×2; 83605; 83735; 84484 ×2; 85025 ×4; 87040; 87077; 87086 ×2; 93005; 96374; 97110 ×2; 97116; 97139 ×3; 97530 ×3; 99285; U0003; U0005; 36415; 87186; 96365; 96366; 96372; 96375; 96376; G0378; J1650; J1956; J2270; J3370; J3475; J7050; Q0162